=== PATIENT | female | born 1960 | race Caucasian/White ===

== ENCOUNTER 2018-07-04 00:39 | Inpatient (IN) | payer OTHER ==
[2018-07-04] MEDS ORDERED: ONDANSETRON 4 MG INJ IV (02:30)
[2018-07-04] MEDS: morphine 2 MG INJ IV ×5 (02:53→21:45)
[2018-07-04] MEDS: PIPER-TAZO 3.375 GM IV (PMX) 100 ML IVPB ×5 (02:53→23:06)
[2018-07-04] MEDS: DEXTROSE 5%-0.45% NACL 1,000 ML IV ×3 (02:53→17:29)
[2018-07-04] MEDS: GABAPENTIN 400 MG CAP PO ×3 (09:08→20:30)
[2018-07-04] MEDS: ALPRAZOLAM 0.25 MG TAB NGT (09:09)
[2018-07-04] MEDS: SERTRALINE 50 MG TAB PO (09:09)
[2018-07-04] MEDS: LOSARTAN 50 MG TAB PO (09:10)
[2018-07-04] MEDS: VANCOMYCIN 1 GM (PMX) 250 ML IVPB ×2 (09:11→20:31)
[2018-07-04 10:56] LABS: ADD MAN DIFF? NO
[2018-07-04 10:58] LABS: BASOPHILS % 0.4 % (0.0-2.0); EOSINOPHILS # 0.2 10^3/ul (0.0-0.5); EOSINOPHILS % 2.5 % (0.0-7.0); HEMOGLOBIN 12.4 g/dl (12.0-16.0); LYMPHOCYTES # 1.8 10^3/ul (0.8-2.9); LYMPHOCYTES % 24.3 % (15.0-51.0); MEAN CORPUSCULAR HEMOGLOBIN 32.3 pg (29.0-33.0); MEAN CORPUSCULAR HGB CONC 34.4 g/dl (32.0-37.0); MEAN CORPUSCULAR VOLUME 93.8 fl (82.0-101.0); MEAN PLATELET VOLUME 10.3 fl (7.4-10.4); MONOCYTE # 0.6 10^3/ul (0.3-0.9); MONOCYTES % 7.5 % (0.0-11.0); NEUTROPHIL # 4.9 10^3/ul (1.6-7.5); NEUTROPHILS % 64.9 % (39.0-77.0); PLATELET COUNT 248 10^3/UL (140-415); RED BLOOD COUNT 3.84 10^6/ul (4.20-5.40); RED CELL DISTRIBUTION WIDTH 12.6 % (11.5-14.5)
[2018-07-04 10:58] LABS: WHITE BLOOD COUNT 7.5 10^3/ul (4.8-10.8)
[2018-07-04] MEDS ORDERED: VANCOMYCIN 1 GM (PMX) 250 ML IVPB (19:00)
[2018-07-05] MEDS: ALPRAZOLAM 0.25 MG TAB PO ×3 (00:07→20:38)
[2018-07-05] MEDS: morphine 2 MG INJ IV ×5 (01:11→21:02)
[2018-07-05 05:15] LABS: ADD MAN DIFF? NO
[2018-07-05 05:26] LABS: BASOPHILS % 0.5 % (0.0-2.0); EOSINOPHILS # 0.2 10^3/ul (0.0-0.5); EOSINOPHILS % 3.8 % (0.0-7.0); HEMATOCRIT 35.3 % (37.0-47.0); HEMOGLOBIN 11.8 g/dl (12.0-16.0); LYMPHOCYTES % 32.9 % (15.0-51.0); MEAN CORPUSCULAR HEMOGLOBIN 31.9 pg (29.0-33.0); MEAN CORPUSCULAR HGB CONC 33.4 g/dl (32.0-37.0); MEAN CORPUSCULAR VOLUME 95.4 fl (82.0-101.0); MEAN PLATELET VOLUME 10.2 fl (7.4-10.4); MONOCYTE # 0.5 10^3/ul (0.3-0.9); NEUTROPHIL # 3.2 10^3/ul (1.6-7.5); NEUTROPHILS % 53.3 % (39.0-77.0); PLATELET COUNT 246 10^3/UL (140-415); RED CELL DISTRIBUTION WIDTH 12.6 % (11.5-14.5)
[2018-07-05 05:44] LABS: INR 0.93; PROTIME 12.6 Sec (11.9-14.9)
[2018-07-05 05:45] LABS: PARTIAL THROMBOPLASTIN TIME 33.5 Sec (23.0-35.0)
[2018-07-05 05:54] LABS: ALANINE AMINOTRANSFERASE 9 IU/L (13-69); ALBUMIN 3.5 g/dl (3.3-4.9); ALBUMIN/GLOBULIN RATIO 1.09; ALKALINE PHOSPHATASE 50 IU/L (42-121); ANION GAP 9 (5-13); ASPARTATE AMINO TRANSFERASE 14 IU/L (15-46); BILIRUBIN,INDIRECT 0.2 mg/dl (0-1.1); BILIRUBIN,TOTAL 0.2 mg/dl (0.2-1.3); BLOOD UREA NITROGEN 8 mg/dl (7-20); CALCIUM 9.1 mg/dl (8.4-10.2); CARBON DIOXIDE 27 mmol/L (21-31); CHLORIDE 103 mmol/L (97-110); CREATININE 0.62 mg/dl (0.44-1.00); Estimated GFR > 60 mL/min (>60); GLUCOSE 126 mg/dl (70-220); POTASSIUM 3.9 mmol/L (3.5-5.1); SODIUM 139 mmol/L (135-144); TOTAL PROTEIN 6.7 g/dl (6.1-8.1)
[2018-07-05] MEDS: PIPER-TAZO 3.375 GM IV (PMX) 100 ML IVPB (06:20)
[2018-07-05] MEDS: DEXTROSE 5%-0.45% NACL 1,000 ML IV ×2 (06:28→18:30)
[2018-07-05] MEDS: LOSARTAN 50 MG TAB PO (08:16)
[2018-07-05] MEDS: GABAPENTIN 400 MG CAP PO ×3 (08:16→20:38)
[2018-07-05] MEDS: SERTRALINE 50 MG TAB PO (08:16)
[2018-07-05] MEDS: VANCOMYCIN 1 GM (PMX) 250 ML IVPB ×2 (08:24→20:38)
[2018-07-05] MEDS ORDERED: MIDAZOLAM 1 MG/ML 2 ML INJ (14:06)
[2018-07-05] MEDS ORDERED: PROPOFOL 20 ML (14:06)
[2018-07-05] MEDS ORDERED: FENTAnyl 50 MCG/ML VIAL (14:06)
[2018-07-05] MEDS ORDERED: LIDOCAINE 2% (SDV) 5 ML INJ (14:06)
[2018-07-05] MEDS ORDERED: MEPERIDINE 25 MG INJ IV (14:30)
[2018-07-05] MEDS ORDERED: FENTAnyl 50 MCG/ML VIAL IV ×2 (14:30)
[2018-07-05] MEDS ORDERED: ALBUTEROL 0.083% (NEB) 2.5 MG/3 ML AMP HHN (14:30)
[2018-07-05] MEDS ORDERED: LABETALOL HCL 20MG INJ IV (14:30)
[2018-07-05] MEDS ORDERED: DIPHENHYDRAMINE 50 MG INJ IV (14:30)
[2018-07-05] MEDS ORDERED: morphine (1 MG/ML) 10ML SYRINGE IV ×2 (14:30)
[2018-07-05] MEDS ORDERED: OXYCODONE/ACETAMINOPHEN (5/325) TAB PO ×2 (14:30)
[2018-07-05] MEDS ORDERED: HYDROmorphONE 1 MG/5 ML IV SYRINGE IV (14:30)
[2018-07-05] MEDS ORDERED: ONDANSETRON 4 MG INJ IV (14:30)
[2018-07-05] MEDS ORDERED: ONDANSETRON 4 MG INJ (14:43)
[2018-07-05] MEDS: POLYMYXIN/BACITRACIN 1L IRRIG IRR (14:43)
[2018-07-05] MEDS ORDERED: FAMOTIDINE 20 MG INJ (14:43)
[2018-07-05] MEDS: HYDROmorphONE 1 MG/5 ML IV SYRINGE IV ×2 (15:53→16:12)
[2018-07-05] MEDS: FENTAnyl 50 MCG/ML VIAL IV (16:14)
[2018-07-05 20:07] LABS: VANCOMYCIN,TROUGH 9.1 ug/ml (10.0-20.0)
[2018-07-06] MEDS: morphine 2 MG INJ IV ×7 (00:09→20:35)
[2018-07-06] MEDS: DEXTROSE 5%-0.45% NACL 1,000 ML IV ×3 (02:47→16:42)
[2018-07-06] MEDS: ALPRAZOLAM 0.25 MG TAB PO ×2 (08:45→21:00)
[2018-07-06] MEDS: GABAPENTIN 400 MG CAP PO ×3 (08:45→20:34)
[2018-07-06] MEDS: VANCOMYCIN HCL 1.25 GM in SOD CHLORIDE 0.9% 250 ML IVPB ×2 (08:45→20:38)
[2018-07-06] MEDS: LOSARTAN 50 MG TAB PO (08:45)
[2018-07-06] MEDS: SERTRALINE 50 MG TAB PO (08:45)
[2018-07-06] MEDS: LIDOCAINE 1% (MPF) 5 ML VIAL SC (17:30)
== END 2018-07-06 22:30 | disposition home health service (06) | DRG 863 ==
LOC: 2NE 00:39
PROVIDERS: Internal Medicine
PROC: 0H9T00Z Drainage of Right Breast with Drainage Device, Open Approach (ICD-10-PCS; principal; 2018-07-05 13:00)
PROC: 02HV33Z Insertion of Infusion Device into Superior Vena Cava, Percutaneous Approach (ICD-10-PCS; 2018-07-05 14:02)
DX: T81.43XA Infection following a procedure, organ and space surgical site, initial encounter (principal); B95.62 Methicillin resistant Staphylococcus aureus infection as the cause of diseases classified elsewhere; N61.1 Abscess of the breast and nipple; Z85.3 Personal history of malignant neoplasm of breast; I10 Essential (primary) hypertension
CPT/HCPCS: 36569; 71045; 76937; 80053; 80202; 85025; 85610; 85730; 87070